=== PATIENT | male | born 1955 | race Caucasian/White ===

== ENCOUNTER 2016-12-12 10:45 | Day surgery (SDC) | payer BC, OTHER ==
[2016-12-12] MEDS ORDERED: DIPHENHYDRAMINE HCL 50 MG/ML VIAL ONE (11:08)
[2016-12-12] MEDS ORDERED: PROMETHAZINE HCL INJ 25 MG/1 ML VIAL ONE (11:08)
[2016-12-12] MEDS ORDERED: ONDANSETRON HCL INJ/PF 4 MG/2 ML SDV ONE (11:08)
[2016-12-12] MEDS ORDERED: NALOXONE HCL INJ/PF 0.4 MG/1 ML SDV ONE (11:08)
[2016-12-12] MEDS ORDERED: FLUMAZENIL INJ 0.5 MG/5 ML VIAL IV ONE (11:09)
[2016-12-12] MEDS ORDERED: EPINEPHRINE INJ 1 MG/10 ML DISP.SYRIN ONE (11:09)
[2016-12-12] MEDS ORDERED: MIDAZOLAM 2 MG/2 ML INJ ONE (11:09)
[2016-12-12] MEDS ORDERED: GLUCAGON,HUMAN RECOMB 1 MG INJ ONE (11:09)
[2016-12-12] MEDS: FENTANYL CITRATE INJ/PF 100 MCG/2 ML AMPUL ONE ×2 (11:36→11:38)
--- NOTE | 2016-12-12 11:43 | Operative Report ---
Operative Report DATE OF SURGERY: 12/12/16 Operative Report: The risks benefits and alternatives of the procedure explained to the patient in detail and informed consent is obtained that GIF Olympus video scope was inserted into the patient's mouth and hypopharynx the esophagus is identified intubated and insufflated the scope was then advanced through the esophagus stomach and duodenum retroflexion maneuver is done the esophagus stomach and first and second portions of the duodenum examined PREOPERATIVE DIAGNOSIS: Dysphagia POSTOPERATIVE DIAGNOSIS: Esophageal rings and furrows suggestive of eosinophilic esophagitis. Mild Schatzki's ring. Gastritis status post biopsy rule out Helicobacter pylori. duodenitis OPERATION: EGD with biopsy SURGEON: CHAVEZ TIERNEY ANESTHESIA: Moderate Sedation - 2 mg of Versed, 75 g of fentanyl. Conscious sedation monitoring time 15 minutes. TISSUE REMOVED OR ALTERED: Gastric specimen obtained rule out Helicobacter pylori COMPLICATIONS: None. ESTIMATED BLOOD LOSS: none. INTRAOPERATIVE FINDINGS: Possible eosinophilic esophagitis we'll await biopsies. Rule out Helicobacter pylori. As described above PROCEDURE: Patient tolerated procedure well. No immediate postprocedure complications are noted. Patient is discharged in good condition. Discharge date 12/12/2016. Discharge diet: Regular. Discharge activity: Regular. We'll await on biopsies. 2-3 week follow-up to discuss findings. Patient is instructed to call the office or proceed to the emergency room should there be any further problems or questions.
[2016-12-12 12:51] VITALS: BP 125/67
== END 2016-12-12 12:50 | disposition home or self-care (01) ==
LOC: END 10:45
PROVIDERS: ATTEND Internal Medicine Gastroenterology
PROC: 0DB58ZX Excision of Esophagus, Via Natural or Artificial Opening Endoscopic, Diagnostic (ICD-10-PCS; 2016-12-12)
PROC: 0DB68ZX Excision of Stomach, Via Natural or Artificial Opening Endoscopic, Diagnostic (ICD-10-PCS; principal; 2016-12-12 11:30)
DX: K29.50 Unspecified chronic gastritis without bleeding (principal); K21.9 Gastro-esophageal reflux disease without esophagitis; I25.10 Atherosclerotic heart disease of native coronary artery without angina pectoris; E78.5 Hyperlipidemia, unspecified; R97.20 Elevated prostate specific antigen [PSA]; Z79.899 Other long term (current) drug therapy; Z79.82 Long term (current) use of aspirin; Z88.8 Allergy status to other drugs, medicaments and biological substances; Z86.010 Personal history of colon polyps
CPT/HCPCS: 43239; 88342 ×2; 88305 ×2; J2250; J3010; J0171; J1200; J1610; J2310; J2405; J2550; J3490

== ENCOUNTER 2016-12-31 20:23 | Observation (INO) | payer BC ==
--- NOTE | 2016-12-31 21:11 | ER Document Report ---
ED Neuro Symptoms/Deficit - General Chief Complaint: Numbness Stated Complaint: LEFT SIDE NUMBNESS Time seen by provider: 21:09 Mode of Arrival: Medic Information source: Patient Notes: This is a 61-year-old man with a significant history of coronary artery disease who is brought in by EMS with right facial droop and right upper extremity weakness 40 minutes prior to arrival. The patient states that both the facial droop and numbness are improving and that the right upper extremity weakness is improving. Medications: Aspirin Fluoxetine Loratadine Phenylephrine Atorvastatin No known drug allergies Payment Manager: Dr. Rafiq Rae ([facility]: [phone]). The patient does have an internal director of cardiac rehabilitation which goes to Dr. Rae's office. Primary care physician: The patient recently moved to the [facility] and is being followed by Dr. Em TRAVEL OUTSIDE OF THE [place] IN LAST 30 DAYS: No - HPI Patient complains to provider of: Facial Droop Onset: Just prior to arrival Awoke with symptoms: No Symptoms are: No: Constant, Intermittent episodes, Worse/persistent, Noted on awakening Duration: denies: Better, Continues in ED, Gone now, More than 3 hrs Quality of pain: No pain Severity: None Pain Level: Denies Context: None Was STROKE ALERT Called: No Baseline Cognitive: Alert, oriented X 3 Baseline Gait: Walks w/o assistance Pre-existing weakness: No: Face, General, Hand, Lower extremity, Upper extremity Alert To: Name/Voice Patient Orientation: Person, Place, Time Character of altered mental status: No: Agitated, Confused, Combative, Decreased responsiveness, Disoriented, Seizure activity, Trouble concentrating, Unchanged from baseline, Unresponsive New weakness: denies: LUE, LLE, RUE, RLE, L facial, R facial, General (diffuse) Altered sensation: denies: LUE, LLE, RUE, RLE, L facial, R facial, General ( diffuse) Decreased ability to stand/walk: denies: Weak, Difficult, Off balance, Cannot walk, Cannot stand Associated symptoms: None Similar symptoms previously: No Recently seen / treated by doctor: No - Related Data Allergies/Adverse Reactions: atenolol Allergy (Unverified 12/11/16 11:06) gabapentin Allergy (Unverified 12/11/16 11:06) niacin Allergy (Unverified 12/11/16 11:06) Past Medical History - General Information source: Patient - Social History Smoking Status: Never Smoker Cigarette use (# per day): No Chew tobacco use (# tins/day): No Frequency of alcohol use: None Drug Abuse: None Lives with: Family Family History: Reviewed & Not Pertinent Patient has suicidal ideation: No Patient has homicidal ideation: No - Past Medical History Cardiac Medical History: Reports: Hx Coronary Artery Disease - BYPASS SURGERY X2 Denies: Hx Heart Attack, Hx Hypertension Pulmonary Medical History: Reports: Hx Pneumonia Denies: Hx Asthma, Hx Bronchitis, Hx COPD Neurological Medical History: Denies: Hx Cerebrovascular Accident, Hx Seizures Renal/ Medical History: Denies: Hx Peritoneal Dialysis Musculoskeltal Medical History: Reports Hx Arthritis - MILD SHOULDER - Immunizations Hx Diphtheria, Pertussis, Tetanus Vaccination: Yes Review of Systems - Review of Systems Constitutional: No symptoms reported EENT: No symptoms reported Cardiovascular: No symptoms reported Respiratory: No symptoms reported Gastrointestinal: No symptoms reported Genitourinary: No symptoms reported Male Genitourinary: No symptoms reported Musculoskeletal: No symptoms reported Skin: No symptoms reported Hematologic/Lymphatic: No symptoms reported Neurological/Psychological: See HPI Physical Exam - Vital signs Vitals: Temp Pulse Resp BP Pulse Ox 97.5 F 60 18 194/72 H 100 12/31/16 20:26 12/31/16 20:26 12/31/16 20:26 12/31/16 20:26 12/31/16 20:26 Notes: Physical exam: GENERAL: 61-year-old man, alert and oriented 3, no acute distress HEAD: Atraumatic, normocephalic. EYES: Pupils equal round and reactive to light, extraocular movements intact, sclera anicteric, conjunctiva are normal. ENT: TMs normal, nares patent, oropharynx clear without exudates. Moist mucous membranes. NECK: Normal range of motion, supple without lymphadenopathy or JVD. LUNGS: Breath sounds clear to auscultation bilaterally and equal. No wheezes rales or rhonchi. HEART: Regular rate and rhythm without murmurs, rubs or gallops. ABDOMEN: Soft, normoactive bowel sounds. No tenderness to palpation. No guarding, no rebound. No masses appreciated. EXTREMITIES: Normal range of motion, no pitting or edema. No clubbing or cyanosis. NEUROLOGICAL: Cranial nerves II through XII grossly intact. Motor 5 over 5, sensory grossly intact, cerebellar (finger to nose) good. Normal speech. Patient is able to answer both the month and his age correctly, he can close his eyes and open them up and make an fast and open them up on command, patient has normal horizontal gaze, patient's visual li are intact, there is no facial palsy, there is no motor on drift, there is motor no motor or leg drift, there is no evidence of ataxia, sensation is somewhat altered on the right side of the face, best language demonstrates no aphasia, his speech is clear, there is no extinction or inattention. NIH score is 1. PSYCH: Normal mood, normal affect. SKIN: Warm, Dry, normal turgor, no rashes or lesions noted. Course - Re-evaluation Re-evalutation: 12/31/16 21:17 The patient is not a candidate for thrombolytics based upon rapidly improving symptoms and an NIH score of 1. I have discussed this with him and he understands. - Vital Signs Vital signs: Temp Pulse Resp BP Pulse Ox 97.5 F 60 12 129/87 H 97 12/31/16 20:26 12/31/16 20:26 12/31/16 22:01 12/31/16 22:01 12/31/16 22:01 - Laboratory Result Diagrams: 12/31/16 20:45 12/31/16 20:45 Laboratory results interpreted by me: 12/31/16 12/31/16 12/31/16 20:41 20:45 20:45 Plt Count 143 L Sodium 145.4 H Glucose 117 H POC Glucose 129 H Creatine Kinase 431 H CK-MB (CK-2) 12/31/16 20:45 Plt Count Sodium Glucose POC Glucose Creatine Kinase CK-MB (CK-2) 15.10 H - Diagnostic Test Radiology reviewed: Image reviewed, Reports reviewed - CT of the head shows an old craniotomy (patient had surgery as a ). Chest x-ray is clear (there is a presence of a heart monitor in the left lower chest). - EKG Interpretation by Me Rate: Normal Rhythm: NSR - EKG shows sinus rhythm at a rate of 60, no acute ST-T wave changes Critical Care Note - Critical Care Note Total time excluding time spent on procedures (mins): 60 Discharge - Discharge Clinical Impression: acute stroke Condition: Stable Disposition: ADMITTED OBSERVATION Admitting Provider: Hospitalist - Dr. Mitchell Unit Admitted: [facility]
[2016-12-31 21:17] LABS: ABSOLUTE EOSINOPHILS # (AUTO) 0.2 10^3/uL (0.0-0.6); ABSOLUTE LYMPHOCYTES (AUTO) 1.6 10^3/uL (0.5-4.7); ABSOLUTE MONOCYTES (AUTO) 0.5 10^3/uL (0.1-1.4); ABSOLUTE NEUT (AUTO) 6.2 10^3/uL (1.7-8.2); BASOPHILS % (AUTO) 0.3 % (0-2); HEMATOCRIT 42.4 % (37.9-51.0); HEMOGLOBIN 14.8 g/dL (13.5-17.0); LYMPHOCYTES % (AUTO) 19.3 % (13-45); MEAN CORPUSCULAR HEMOGLOBIN 31.1 pg (27.0-33.4); MEAN CORPUSCULAR VOLUME 89 fl (80-97); MONOCYTES % (AUTO) 5.3 % (3-13); RED BLOOD COUNT 4.78 10^6/uL (4.35-5.55); RED CELL DISTRIBUTION WIDTH 13.5 % (11.5-14.0); SEGMENTED NEUTROPHILS % (AUTO) 73.1 % (42-78); WHITE BLOOD COUNT 8.5 10^3/uL (4.0-10.5)
[2016-12-31 21:26] LABS: ALANINE AMINOTRANSFERASE 38 U/L (21-72); ALBUMIN 4.5 g/dL (3.5-5.0); ALKALINE PHOSPHATASE 87 U/L (38-126); ANION GAP 13 (5-19); ASPARTATE AMINO TRANSFERASE 39 U/L (17-59); BILIRUBIN,DIRECT 0.4 mg/dL (0.0-0.4); BLOOD UREA NITROGEN 15 mg/dL (7-20); CALCIUM 9.5 mg/dL (8.4-10.2); CARBON DIOXIDE 27 mmol/L (22-30); CHLORIDE 105 mmol/L (98-107); CREATINE KINASE 431 U/L (55-170); CREATININE RESULT 0.85 mg/dL (0.52-1.25); GLUCOSE 117 mg/dL (75-110); POTASSIUM 4.4 mmol/L (3.6-5.0); SODIUM 145.4 mmol/L (137-145); TOTAL PROTEIN 7.7 g/dL (6.3-8.2)
[2016-12-31 23:37] LABS: ADD ON TESTING BLD IN LAB ACKNOWLEDGE
[2017-01-01 02:34] LABS: APPEARANCE,URINE CLEAR; BILIRUBIN,URINE NEGATIVE (NEGATIVE); GLUCOSE, URINE NEGATIVE (NEGATIVE); KETONES,URINE NEGATIVE (NEGATIVE); LEUKOCYTE ESTERASE,URINE NEGATIVE (NEGATIVE); NITRITE,URINE NEGATIVE (NEGATIVE); PROTEIN,URINE NEGATIVE (NEGATIVE); UROBILINOGEN,URINE NEGATIVE mg/dL (<2.0)
[2017-01-01 02:45] LABS: URINE BARBITURATES SCREEN NEGATIVE; URINE METHADONE SCREEN NEGATIVE; URINE OPIATES LOW NEGATIVE; URINE PHENCYCLIDINE SCREEN NEGATIVE
[2017-01-01] MEDS ORDERED: 1/2 NORMAL SALINE 1,000 ML IV PRN (03:16)
[2017-01-01] MEDS ORDERED: ACETAMINOPHEN 325 MG TABLET PO PRN (03:16)
[2017-01-01] MEDS ORDERED: ASPIRIN 325 MG TABLET, ENT COATED PO SCH (03:30)
[2017-01-01 03:34] LABS: ADD ON TESTING BLD IN LAB ACKNOWLEDGE
[2017-01-01 03:47] LABS: CREATINE KINASE 441 U/L (55-170)
--- NOTE | 2017-01-01 03:54 | PDOC H&P ---
History of Present Illness Admission Date/PCP: 01/01/17 0300 PCP Manav Abad [place], [place] Patient complains of: rt sided numbness History of Present Illness: BOUCHRA CHAMBERS is a 61 year old male with underlying known coronary artery disease, having undergone coronary arterial bypass graft on 2 separate occasions, mild arthritis, and anxiety, but with no underlying prior neurologic issues, including migraine headache, stroke, TIA, or mini stroke, who presents to the emergency room for evaluation of above complaints. Patient has been discussed with emergency room physician who evaluated the patient. Describes the onset at home of right facial droop, right upper extremity weakness, and numbness and tingling of his right face approximately 40 minutes prior to arrival. Symptoms resolved en route to the emergency room and have almost completely cleared. Still having some mild right facial numbness and tingling, along with similar involvement of his right lower extremity. No prior such issues. No history of migraine headache. did have a mild headache associated with the above symptoms, but this has resolved. No associated chest or abdominal pain, nausea vomiting, fever or chills. NIH score of 1 in the emergency room.. Laboratory results are listed in [facility] [employer] and are reviewed. No old labs available for comparison. X-ray summary results are listed below, with full report(s) reviewed. He is status post craniotomy as a , for uncertain reason.. EKG reviewed. Social history/personal habits: . Retired. 5 children. No use of alcohol tobacco or illicit drugs. Allergies/adverse reactions are listed in [employer] and are reviewed. Home medications Home medications initially autopopulated into [employer] may not accurately reflect patient's true medications, dosages, and/or frequencies. flight readiness technician to reconcile medications. Unfortunately, patient uncertain of all his medications/dosages/frequencies. REVIEW OF SYSTEMS: Constitutional: No fever or chills. Eyes: Wears glasses. ENT: No swallowing problems or complaints. No hearing problems or complaints. Pulmonary: No current complaints. Cardiovascular: No current complaints, including chest pain. Gastrointestinal: No current complaints, including nausea or vomiting. Skin: No current complaints, including rashes. Hematologic: No unusual easy bruising or bleeding. Neurologic: See history and present illness. Musculoskeletal: Mild Joint pain from arthritis. Psychiatric: Anxiety Endocrine: No current complaints, including polyuria. Genitourinary: No current complaints, including dysuria. PHYSICAL EXAMINATION: 95.3 kg. Height is not recorded on the chart.Pulse 51. Blood pressure 145/68. Respirations are 13 and unlabored. 98% saturation on room air. Temperature 97.5. Well-nourished well-developed perhaps slightly overweight bearded male appearing perhaps a bit younger than his stated age. Pleasant awake alert and cooperative. No obvious distress other than perhaps mildly anxious. Skin is warm and dry. No grossly obvious evidence of rash in areas of skin examined. No subcutaneous nodules palpated. ENT: Hearing grossly normal to normal conversation. Tongue midline on protrusion pink and slightly tacky. Eyes: No scleral icterus. Pupils equal and reactive to light at 4 mm. [place] conjunctivae. Neck is supple and nontender to gentle active range of motion and palpation. Midline trachea. No palpable thyroid nodule mass enlargement or tenderness. Lymphatic: No palpable cervical or clavicular nodes. Neck and lymphatic exams limited by patient body habitus. Psychiatric: Reasonable insight into acute and chronic medical issues. Oriented to time location and why here. Lungs: Auscultation reveals clear and equal breath sounds bilaterally. No use of accessory respiratory muscles. Cardiovascular: Heart regular rate and rhythm, without gallop murmur or rub. No carotid or abdominal aortic bruits. No ankle or pedal edema. Faintly palpable dorsalis pedis pulses. Abdomen: soft, , slightly distended nontender with positive bowel sounds. Unable to adequately evaluate abdomen for masses or organomegaly due to distention. Extremities: Feet are warm and dry. No calf tenderness to compression. No grossly obvious visual evidence of calf swelling. Gentle manipulation of lower extremities fails to reveal any obvious evidence of injury or instability to knees hips or ankles. Neurologic: Cranial Nerves II through XII are grossly intact. Light touch intact at left side of face, both upper and left lower extremities. Slight decrease in light touch sensation, right side of face and distal right lower extremity. Motor function of major muscle groups upper and lower extremities 5 over 5 and symmetric. Patellar reflexes absent. Absent Babinski. No nystagmus. Past Medical History Cardiac Medical History: Reports: Coronary Artery Disease - BYPASS SURGERY X2 Denies: Congestive Heart Failure, DVT, Myocardial Infarction, Hyperlipidema, Hypertension, Pulmonary Embolism Pulmonary Medical History: Reports: Pneumonia Denies: Asthma, Bronchitis, Chronic Obstructive Pulmonary Disease (COPD) Neurological Medical History: Denies: Hemorrhagic CVA, Ischemic CVA, Seizures Endocrine Medical History: Denies: Diabetes Mellitus Type 1, Diabetes Mellitus Type 2, Hyperthyroidism, Hypothyroidism Renal/ Medical History: Reports: None GI Medical History: Denies: Cirrhosis, Gastroesophageal Reflux Disease, Hepatitis Musculoskeltal Medical History: Reports: Arthritis - MILD SHOULDER Skin Medical History: Reports: None Psychiatric Medical History: Reports: General Anxiety Disorder Denies: Alcohol Dependency, Depression, Substance Abuse, Tobacco Dependency Hematology: Denies: Anemia Infectious Medical History: Denies: Hepatitis B, Hepatitis C Past Surgical History Past Surgical History: Reports: Coronary Artery Bypass Graft - 2, Orthopedic Surgery - Hip surgery, Other - Craniotomy as a Social History Information Source: Patient, Emergency Med Personnel, [facility] Records Lives with: Spouse/Significant other Smoking Status: Never Smoker Frequency of Alcohol Use: None Drugs: None - Advance Directive Resuscitation Status: Full Code Surrogate healthcare decision maker:: Family History Family History: Reviewed & Not Pertinent Parental Family History Reviewed: Yes - father when his "muscles gave way. " Mother is 92, has heart disease. Children Family History Reviewed: Yes - Son with Schatzki's ring Sibling(s) Family History Reviewed.: Yes - Brother with hypertension Medication/Allergy Home Medications: Aspirin [Ecotrin 325 mg EC Tablet] 325 mg PO DAILY tabec 01/01/17 Atorvastatin Calcium [Lipitor 40 mg Tablet] 40 mg PO QHS 01/01/17 Fluoxetine HCl [Prozac] 40 mg PO DAILY 01/01/17 Loratadine [Claritin 10 mg Tablet] 10 mg PO DAILY 01/01/17 Allergies/Adverse Reactions: atenolol Allergy (Unverified 12/11/16 11:06) gabapentin Allergy (Unverified 12/11/16 11:06) niacin Allergy (Unverified 12/11/16 11:06) Physical Exam Vital Signs: Temp Pulse Resp BP Pulse Ox 97.5 F 56 L 13 145/68 H 98 12/31/16 20:26 01/01/17 00:00 01/01/17 02:01 01/01/17 02:01 01/01/17 02:01 Results Laboratory Results: 01/01/17 02:10 Urine Color YELLOW Urine Appearance CLEAR Urine pH 7.0 Ur Specific [place] 1.010 Urine Protein NEGATIVE Urine Glucose (UA) NEGATIVE Urine Ketones NEGATIVE Urine Blood NEGATIVE Urine Nitrite NEGATIVE Ur Leukocyte Esterase NEGATIVE Urine WBC (Auto) 0 01/01/17 00:50 Troponin I < 0.012 Impressions: Chest X-Ray 12/31/16 00:00 IMPRESSION: NO ACUTE RADIOGRAPHIC FINDING IN THE CHEST. Head CT 12/31/16 20:29 IMPRESSION: Postsurgical changes. No acute intracranial event. Assessment & Plan - Diagnosis (1) Acute focal neurological deficit Is this a current diagnosis for this admission?: YesPlan: Patient will be placed in observation bed under CVA/TIA protocol. Multiple imaging procedures, intracranial, vascular, and cardiac. lipid panel. Permissive hypertension. Patient is a full code. I have strongly urged patient not to get out of bed without calling nursing staff, to avoid a fall with injury.] Knee high SCDs for DVT prophylaxis, along with subcutaneous Lovenox . Impression and plans were discussed with patient, who concurs. Time spent in evaluation and management of patient: 63 minutes (2) Elevated CPK Is this a current diagnosis for this admission?: YesPlan: Uncertain significance. Repeat level. (3) Facial droop Is this a current diagnosis for this admission?: Yes (4) Facial paresthesia Is this a current diagnosis for this admission?: Yes (5) Paresthesia of right leg Is this a current diagnosis for this admission?: Yes (6) Right arm weakness Is this a current diagnosis for this admission?: Yes (7) Thrombocytopenia Is this a current diagnosis for this admission?: YesPlan: Uncertain significance. No old labs available for comparison. Repeat CBC. (8) CAD (coronary artery disease) Qualifiers: Coronary Disease-Associated Artery/Lesion type: [place] artery [place] vs. transplanted heart: [place] heart Associated angina: without angina Qualified Code(s): I25.10 - Atherosclerotic heart disease of [place] coronary artery without angina pectoris Is this a current diagnosis for this admission?: YesPlan: No evidence of acute coronary syndrome.Resume home medications as appropriate once these have been determined and reviewed.
[2017-01-01 07:22] LABS: HEMATOCRIT 40.5 % (37.9-51.0); HEMOGLOBIN 14.4 g/dL (13.5-17.0); HGB HCT DIFFERENCE 2.7; MEAN CORPUSCULAR HEMOGLOBIN 31.3 pg (27.0-33.4); MEAN CORPUSCULAR HGB CONC 35.6 g/dL (32.0-36.0); MEAN CORPUSCULAR VOLUME 88 fl (80-97); RED CELL DISTRIBUTION WIDTH 13.5 % (11.5-14.0); WHITE BLOOD COUNT 5.8 10^3/uL (4.0-10.5)
[2017-01-01 07:37] LABS: ANION GAP 11 (5-19); BLOOD UREA NITROGEN 12 mg/dL (7-20); CALCIUM 8.9 mg/dL (8.4-10.2); CARBON DIOXIDE 28 mmol/L (22-30); CHLORIDE 105 mmol/L (98-107); CREATININE RESULT 0.76 mg/dL (0.52-1.25); Direct HDL 30 mg/dL (>40); GLUCOSE 100 mg/dL (75-110); POTASSIUM 4.3 mmol/L (3.6-5.0); SODIUM 143.5 mmol/L (137-145); TRIGLYCERIDES 194 mg/dL (<150)
--- NOTE | 2017-01-01 07:40 | EKG REPORT ---
SEVERITY:- NORMAL ECG - SINUS RHYTHM : Confirmed by: Lakisha Sellers MD 01-Jan-2017 07:39:17
[2017-01-01 07:47] LABS: DIRECT LDL 60 mg/dL (<100)
[2017-01-01 07:54] LABS: VLDL CHOLESTEROL 38.8 mg/dL (10-31)
[2017-01-01] MEDS ORDERED: ENOXAPARIN SODIUM INJ 40 MG/0.4 ML DISP.SYRIN SUBCUT SCH (08:00)
[2017-01-01] MEDS ORDERED: DOCUSATE SODIUM 100 MG CAPSULE PO SCH (10:00)
--- NOTE | 2017-01-01 16:37 | PDOC DISCHARGE SUMMARY ---
General - Admit/Disc Date/PCP Admission Date/Primary Care Provider: 01/01/17 03:16 Dr. Jamie Em Discharge Date: 01/01/17 - Discharge Diagnosis (1) TIA (transient ischemic attack) Is this a current diagnosis for this admission?: Yes (2) Sinus bradycardia Is this a current diagnosis for this admission?: Yes (3) Thrombocytopenia Is this a current diagnosis for this admission?: Yes (4) CAD (coronary artery disease) Is this a current diagnosis for this admission?: Yes - Additional Information Resuscitation Status: Full Code Discharge Diet: Cardiac Discharge Activity: Slowly Increase Activity Home Medications: Aspirin [Ecotrin 325 mg EC Tablet] 325 mg PO DAILY tabec 01/01/17 Atorvastatin Calcium [Lipitor 40 mg Tablet] 40 mg PO QHS 01/01/17 Fluoxetine HCl [Prozac] 40 mg PO DAILY 01/01/17 Loratadine [Claritin 10 mg Tablet] 10 mg PO DAILY 01/01/17 History of Present Illness Patient complains of: Right-sided numbness History of Present Illness: BOUCHRA CHAMBERS is a 61 year old male with underlying known coronary artery disease, having undergone coronary arterial bypass graft on 2 separate occasions, mild arthritis, and anxiety, but with no underlying prior neurologic issues, including migraine headache, stroke, TIA, or mini stroke, who presents to the emergency room for evaluation of above complaints. Patient has been discussed with emergency room physician who evaluated the patient. Describes the onset at home of right facial droop, right upper extremity weakness, and numbness and tingling of his right face proximal he 40 minutes prior to arrival. Symptoms resolved in route to the emergency room and have almost completely cleared. Still having some mild right facial numbness and tingling, along with similar involvement of his right lower extremity. No prior such issues. No history of migraine headache. She did have a mild headache associated with the above symptoms, but this has resolved. No associated chest or abdominal pain, nausea vomiting, fever or chills. NIH score of 1 in the emergency room.. Hospital Course Hospital Course: Patient was admitted for evaluation of TIA. Head CT was negative. Aspirin regimen was increased from 81 mg daily to 325 mg daily. Patient was maintained on Lipitor 40 mg daily. EKG showed sinus rhythm. Telemetry monitoring showed sinus bradycardia but no evidence of dysrhythmia. MRI was not performed secondary to implantable teletypesetter monitor. Patient's symptoms completely resolved within hours of admission. Carotid Dopplers showed no significant stenosis. Echocardiogram was performed and results are pending. TSH was performed secondary to sinus bradycardia but results are pending. Patient will need a follow-up with Dr. Jamie Hidalgo primary care doctor. Patient's states she will make appointment for local family centered specialist based on insurance requirements. Physical Exam Vital Signs: Temp Pulse Resp BP Pulse Ox 98.0 F 60 16 147/73 H 99 01/01/17 12:04 01/01/17 12:04 01/01/17 12:04 01/01/17 12:04 01/01/17 12:04 Intake & Output 12/31/16 01/01/17 01/02/17 06:59 06:59 06:59 Intake Total 300 713 Balance 300 713 Weight 97.5 kg GENERAL: No acute distress HEENT: Conjunctiva clear, nonicteric, moist mucous membranes, no JVD, midline trachea RESPIRATORY: Clear to auscultation bilaterally, no wheezes, no rhonchi CARDIAC: Regular rate and rhythm, no murmurs/gallops/rubs ABDOMEN: Soft, nondistended, nontender, positive bowel sounds, no rebound, no guarding EXTREMETIES: No edema, cyanosis, clubbing NEUROLOGIC: Alert, oriented to person/place/time, CN's grossly intact, no focal deficits SKIN: No rash, wounds PSYCH: Normal mood, normal affect Results Laboratory Results: 01/01/17 06:33 01/01/17 06:33 01/01/17 01/01/17 06:33 06:33 WBC 5.8 RBC 4.60 Hgb 14.4 Hct 40.5 MCV 88 MCH 31.3 MCHC 35.6 RDW 13.5 Plt Count 124 L Sodium 143.5 Potassium 4.3 Chloride 105 Carbon Dioxide 28 Anion Gap 11 BUN 12 Creatinine 0.76 Est GFR ( Amer) > 60 Est GFR (Non-Af Amer) > 60 Glucose 100 Calcium 8.9 Triglycerides 194 H Cholesterol 135.10 LDL Cholesterol Direct 60 VLDL Cholesterol 38.8 H HDL Cholesterol 30 L Labs- Last Values WBC 5.8 10^3/uL (4.0-10.5) 01/01/17 06:33 RBC 4.60 10^6/uL (4.35-5.55) 01/01/17 06:33 Hgb 14.4 g/dL (13.5-17.0) 01/01/17 06:33 Hct 40.5 % (37.9-51.0) 01/01/17 06:33 MCV 88 fl (80-97) 01/01/17 06:33 MCH 31.3 pg (27.0-33.4) 01/01/17 06:33 MCHC 35.6 g/dL (32.0-36.0) 01/01/17 06:33 RDW 13.5 % (11.5-14.0) 01/01/17 06:33 Plt Count 124 10^3/uL (150-450) L 01/01/17 06:33 Seg Neutrophils % 73.1 % (42-78) 12/31/16 20:45 Lymphocytes % 19.3 % (13-45) 12/31/16 20:45 Monocytes % 5.3 % (3-13) 12/31/16 20:45 Eosinophils % 2.0 % (0-6) 12/31/16 20:45 Basophils % 0.3 % (0-2) 12/31/16 20:45 Absolute Neutrophils 6.2 10^3/uL (1.7-8.2) 12/31/16 20:45 Absolute Lymphocytes 1.6 10^3/uL (0.5-4.7) 12/31/16 20:45 Absolute Monocytes 0.5 10^3/uL (0.1-1.4) 12/31/16 20:45 Absolute Eosinophils 0.2 10^3/uL (0.0-0.6) 12/31/16 20:45 Absolute Basophils 0.0 10^3/uL (0.0-0.2) 12/31/16 20:45 Sodium 143.5 mmol/L (137-145) 01/01/17 06:33 Potassium 4.3 mmol/L (3.6-5.0) 01/01/17 06:33 Chloride 105 mmol/L (98-107) 01/01/17 06:33 Carbon Dioxide 28 mmol/L (22-30) 01/01/17 06:33 Anion Gap 11 (5-19) 01/01/17 06:33 BUN 12 mg/dL (7-20) 01/01/17 06:33 Creatinine 0.76 mg/dL (0.52-1.25) 01/01/17 06:33 Est GFR ( Amer) > 60 (>60) 01/01/17 06:33 Est GFR (Non-Af Amer) > 60 (>60) 01/01/17 06:33 Glucose 100 mg/dL (75-110) 01/01/17 06:33 POC Glucose 129 mg/dL (70-110) H 12/31/16 20:41 Calcium 8.9 mg/dL (8.4-10.2) 01/01/17 06:33 Magnesium 2.0 mg/dL (1.6-2.3) 12/31/16 20:45 Total Bilirubin 1.0 mg/dL (0.2-1.3) 12/31/16 20:45 Direct Bilirubin 0.4 mg/dL (0.0-0.4) 12/31/16 20:45 Indirect Bilirubin Not Reportable 12/31/16 20:45 Neonat Total Bilirubin Not Reportable 12/31/16 20:45 AST 39 U/L (17-59) 12/31/16 20:45 ALT 38 U/L (21-72) 12/31/16 20:45 Alkaline Phosphatase 87 U/L (38-126) 12/31/16 20:45 Creatine Kinase 441 U/L (55-170) H 12/31/16 20:45 CK-MB (CK-2) 15.10 ng/mL (<4.55) H 12/31/16 20:45 Troponin I < 0.012 ng/mL 01/01/17 00:50 Total Protein 7.7 g/dL (6.3-8.2) 12/31/16 20:45 Albumin 4.5 g/dL (3.5-5.0) 12/31/16 20:45 Triglycerides 194 mg/dL (<150) H 01/01/17 06:33 Cholesterol 135.10 mg/dL (0-200) 01/01/17 06:33 LDL Cholesterol Direct 60 mg/dL (<100) 01/01/17 06:33 VLDL Cholesterol 38.8 mg/dL (10-31) H 01/01/17 06:33 HDL Cholesterol 30 mg/dL (>40) L 01/01/17 06:33 Urine Color YELLOW 01/01/17 02:10 Urine Appearance CLEAR 01/01/17 02:10 Urine pH 7.0 (5.0-9.0) 01/01/17 02:10 Ur Specific [place] 1.010 01/01/17 02:10 Urine Protein NEGATIVE mg/dL (NEGATIVE) 01/01/17 02:10 Urine Glucose (UA) NEGATIVE mg/dL (NEGATIVE) 01/01/17 02:10 Urine Ketones NEGATIVE mg/dL (NEGATIVE) 01/01/17 02:10 Urine Blood NEGATIVE (NEGATIVE) 01/01/17 02:10 Urine Nitrite NEGATIVE (NEGATIVE) 01/01/17 02:10 Urine Bilirubin NEGATIVE (NEGATIVE) 01/01/17 02:10 Urine Urobilinogen NEGATIVE mg/dL (<2.0) 01/01/17 02:10 Ur Leukocyte Esterase NEGATIVE (NEGATIVE) 01/01/17 02:10 Urine WBC (Auto) 0 /HPF 01/01/17 02:10 Urine Mucus (Auto) RARE /LPF 01/01/17 02:10 Urine Ascorbic Acid NEGATIVE (NEGATIVE) 01/01/17 02:10 Urine Opiates Screen NEGATIVE 01/01/17 02:10 Urine Methadone Screen NEGATIVE 01/01/17 02:10 Ur Barbiturates Screen NEGATIVE 01/01/17 02:10 Ur Phencyclidine Scrn NEGATIVE 01/01/17 02:10 Ur Amphetamines Screen NEGATIVE 01/01/17 02:10 U Benzodiazepines Scrn NEGATIVE 01/01/17 02:10 Urine Cocaine Screen NEGATIVE 01/01/17 02:10 U Marijuana (THC) Screen NEGATIVE 01/01/17 02:10 EKG Comments: Sinus rhythm Impressions: Chest X-Ray 12/31/16 00:00 IMPRESSION: NO ACUTE RADIOGRAPHIC FINDING IN THE CHEST. Head CT 12/31/16 20:29 IMPRESSION: Postsurgical changes. No acute intracranial event. Carotid Doppler Study 01/01/17 03:21 IMPRESSION: NO HEMODYNAMICALLY SIGNIFICANT STENOSIS. Qualifiers PATEINT BEING DISCHARGED WITH ANY OF THE FOLLOWING DIAGNOSIS?: No Plan Time Spent: Less than 30 Minutes
[2017-01-01 17:07] VITALS: BP 194/72
--- NOTE | 2017-01-01 19:29 | XCELERA REPORT ---
[address] [address] Transthoracic Echocardiogram Report Name: BOUCHRA CHAMBERS Age: 61 yrs Gender: Male : 1955 Patient Status: Inpatient Patient Location: [id number] Study Date: 01/01/2017 09:10 AM Height: 70 in Weight: 210 lb BSA: 2.1 m2 Procedure: A complete two-dimensional transthoracic echocardiogram was performed (2D, M-mode, spectral and color flow Doppler). The study was technically difficult with many images being suboptimal in quality. Reason For Study: TIA VS CVA Ordering Physician: JANIE DE LEÓN Performed By: Joanie Alonso Interpretation Summary LV EF is 50% Left ventricular systolic function is mildly reduced. There is borderline concentric left ventricular hypertrophy. The left ventricle is grossly normal size. Doppler measurements suggest pseudonormalized left ventricular relaxation, which is associated with grade II/IV or mild to moderate diastolic dysfunction Wall motion cannot be accurately commented on, but no definite regional wall motion abnormalities noted. The right ventricle is mildly dilated. The right ventricular systolic function is normal. The left atrium is mildly dilated. The right atrium is mildly dilated. There is a mild amount of mitral regurgitation There is no mitral valve stenosis. No aortic regurgitation is present. There is no aortic valve stenosis There is a trace or physiologic amount of tricuspid regurgitation Tricuspid regurgitation jet envelope not well defined to measure RV systolic pressure accurately. The aortic root is not well visualized. The inferior vena cava was not visualized There is no pericardial effusion. MMode/2D Measurements \T\ Calculations RVDd: 3.1 cm LVIDd: 5.4 cm FS: 23.8 % Ao root diam: 3.5 cm IVSd: 0.86 cm LVIDs: 4.1 cm EDV(Teich): 140.4 ml LVPWd: 0.98 cmESV(Teich): 74.4 ml Ao root area: 9.5 cm2 EF(Teich): 47.1 % LA dimension: 4.2 cm LVOT diam: 2.0 cm LVOT area: 3.2 cm2 Doppler Measurements \T\ Calculations MV E max noel: MV P1/2t max noel: Ao V2 max: LV V1 max P.1 cm/sec 73.5 cm/sec 107.2 cm/sec 4.1 mmHg MV A max noel: MV P1/2t: 64.4 msec Ao max PG: LV V1 max: 82.4 cm/sec MVA(P1/2t): 3.4 cm2 4.6 mmHg 100.7 cm/sec MV E/A: 0.89 MV dec slope: ARIADNA(V,D): 3.0 cm2 334.6 cm/sec2 PA V2 max: 68.6 cm/sec PA max P.9 mmHg Left Ventricle The left ventricle is grossly normal size. There is borderline concentric left ventricular hypertrophy. Left ventricular systolic function is mildly reduced. LV EF is 50%. Doppler measurements suggest pseudonormalized left ventricular relaxation, which is associated with grade II/IV or mild to moderate diastolic dysfunction. Wall motion cannot be accurately commented on, but no definite regional wall motion abnormalities noted. Right Ventricle The right ventricle is mildly dilated. There is normal right ventricular wall thickness. The right ventricular systolic function is normal. Atria The right atrium is mildly dilated. The left atrium is mildly dilated. Interarterial septum not well visualized and not well dopplered. Cannot comment on ASD/PFO presence. Mitral Valve The mitral valve leaflets are sclerotic, but show no functional abnormalities. There is no mitral valve stenosis. There is a mild amount of mitral regurgitation. Aortic Valve The aortic valve is grossly normal. There is no aortic valve stenosis. No aortic regurgitation is present. Tricuspid Valve The tricuspid valve is not well visualized secondary to technical limitations. There is no tricuspid stenosis. There is a trace or physiologic amount of tricuspid regurgitation. Tricuspid regurgitation jet envelope not well defined to measure RV systolic pressure accurately. Pulmonic Valve The pulmonic valve is not well visualized. Great Vessels The aortic root is not well visualized. The inferior vena cava was not visualized. Effusions There is no pericardial effusion. : JANIE DE LEÓN > Erica Mckeon
== END 2017-01-01 17:40 | disposition home or self-care (01) ==
LOC: ER 20:23 → EH 23:21 → UNDOADMOB 23:21 → 3N 01-01 02:31 → EH 01-01 02:31 → 3N 01-01 03:16 → EH 01-01 03:16
PROVIDERS: ADMIT Family Medicine; ATTEND Family Medicine
DX: G45.9 Transient cerebral ischemic attack, unspecified (principal); R00.1 Bradycardia, unspecified; D69.6 Thrombocytopenia, unspecified; I25.10 Atherosclerotic heart disease of native coronary artery without angina pectoris; Z95.1 Presence of aortocoronary bypass graft; F41.9 Anxiety disorder, unspecified; M19.90 Unspecified osteoarthritis, unspecified site; M13.819 Other specified arthritis, unspecified shoulder; Z98.890 Other specified postprocedural states; Z82.49 Family history of ischemic heart disease and other diseases of the circulatory system; Z79.82 Long term (current) use of aspirin; Z79.899 Other long term (current) drug therapy
CPT/HCPCS: 93005; 99291; 36415 ×2; 82553; 82962; 82550 ×2; 83735; 84443; 85025; 85027; 80048; 80053; 81001; 84484 ×2; 80307; 80061; 93306; 93880; 71010; 70450; 93010; G0378; J1650

== ENCOUNTER → 2017-05-28 | Outpatient (CLI) | payer BC ==
[~2017-05-28] MED LIST: REGADENOSON INJ 0.4 MG/5 ML DISP.SYRIN IV ONE
--- NOTE | 2017-05-28 13:07 | RADIOLOGY REPORT (SQ) ---
EXAM DESCRIPTION: [facility] SPECT-CARDIOLITE COMPLETED DATE/TIME: 05/28/2017 12:40 pm REASON FOR STUDY: BRADYCARDIA, UNSPEC (R00.1), HTN (I10) R00.1 BRADYCARDIA, UNSPECIFIED I10 ESSENT IAL (PRIMARY) HYPERTENSION COMPARISON: Chest film 12/31/2016 Cardiac echo 01/01/2017 RADIONUCLIDE AND DOSE: RADIONUCLIDE REST: 14.95 mCi technetium 99m sestamibi. RADIONUCLIDE STRESS: 43.7 mCi technetium 99m sestamibi. STRESS AGENT: 0.4 mg Lexiscan. The route of agent administration: Intravenous TECHNIQUE: Following administration of the radionuclide, gated ECT images of the heart are obtained in three projections. Images obtained at rest and with stress. Left ventricular functional analysis performed. LIMITATIONS: None. FINDINGS: LEFT VENTRICULAR FUNCTION: EJECTION FRACTION: 56%. END-DIASTOLIC VOLUME: 120 mL. END-SYSTOLIC VOLUME: 53 mL. TID RATIO: 0.83. WALL MOTION: Normal thickening of the left ventricular myocardium. No focal areas of fixed thickness or thinning. PERFUSION IMAGES: Normal myocardial perfusion at stress and rest. No reversible defects worrisome fo r ischemic change. OTHER: No other significant finding. IMPRESSION: No Cardiolite defects on stress as compared to rest. Left ventricular ejection fraction 56%. Borderline dilatation of the left ventricle on the end systolic and end diastolic volume estim ates COMMENT: RISK ASSESSMENT: Low risk. LOW RISK FINDINGS: Normal or small perfusion defect rest or stress. INTERMEDIATE RISK FINDINGS: Mild/moderate resting LV dysfunction LVEF=35-49%. Stress-induced moderate perfusion defect without LV dilatation. HIGH RISK FINDINGS: Severe resting LV dysfunction LVEF<35%. Stress-induced large perfusion defect. Stress-induced moderate sized multiple perfusion defects. Large fixed perfusion defect with LV dilatation. Stress-induced moderate perfusion defect with LV dilatation. TECHNICAL DOCUMENTATION: JOB ID: [id number] [employer]- All Rights Reserved
== END ==
LOC: RAD 07:35
PROVIDERS: ATTEND Internal Medicine Cardiovascular Disease
DX: R00.1 Bradycardia, unspecified (principal); I10 Essential (primary) hypertension
CPT/HCPCS: 93017; 78452; A9500; J2785; Q9969

== ENCOUNTER → 2017-06-05 | Outpatient (CLI) | payer BC ==
--- NOTE | 2017-06-05 16:26 | RADIOLOGY REPORT (SQ) ---
EXAM DESCRIPTION: CT HEAD WITHOUT COMPLETED DATE/TIME: 06/05/2017 3:57 pm REASON FOR STUDY: HEADACHE R51 HEADACHE COMPARISON: CT brain 12/31/2016 TECHNIQUE: Axial images acquired through the brain without intravenous contrast. Images reviewed wi th bone, brain and subdural windows. Images stored on PACS. All CT scanners at this facility use dose modulation, iterative reconstruction, and/or weight based d osing when appropriate to reduce radiation dose to as low as reasonably achievable (ALARA). [facility]: Dose Right [facility]: CareDose [facility]: Dose Right [facility]: Teradose 4D [facility]: Smart [employer] RADIATION DOSE: Up-to-date CT equipment and radiation dose reduction techniques were employed. CTDIv ol: 49.0 mGy. DLP: 881 mGy-cm. mGy. LIMITATIONS: None. FINDINGS: VENTRICLES: Normal size and contour. CEREBRUM: No masses. No acute hemorrhage. No midline shift. No evidence for acute infarction. Ther e is a chronic appearing left frontal white matter infarct on axial image 22, which is new compared t o CT brain 12/31/2016. CEREBELLUM: No masses. No hemorrhage. No alteration of density. No evidence for acute infarction. EXTRAAXIAL SPACES: No fluid collections. No masses. There are surgical clips in the left frontal mccormick barachnoid space ORBITS AND GLOBE: No intra- or extraconal masses. Old left cataract surgery. CALVARIUM: Old left and right frontal craniotomies. PARANASAL SINUSES: No fluid or mucosal thickening. SOFT TISSUES: No mass or hematoma. OTHER: No other significant finding. IMPRESSION: Since the prior CT 12/31/2016, patient has developed a small lacunar infarct in the left frontal deep periventricular white matter, which appears chronic on today's exam. Old bifrontal craniotomies with surgical clips in the left frontal subarachnoid or subdural space. No acute intracranial hemorrhage, no CT evidence of large territory acute ischemic change. EVIDENCE OF ACUTE STROKE: NO. COMMENT: Quality ID # [id number]: Final reports with documentation of one or more dose reduction techniques (e.g., Automated exposure control, adjustment of the mA and/or kV according to patient size, use of iterative reconstruction technique) TECHNICAL DOCUMENTATION: JOB ID: [id number]- All Rights Reserved
== END ==
LOC: RAD 15:46
PROVIDERS: ATTEND Family Medicine
DX: R51 Headache (principal)
CPT/HCPCS: 70450

== ENCOUNTER 2017-06-27 17:01 | Emergency (ER) | payer BC ==
--- NOTE | 2017-06-27 17:15 | ER Document Report ---
ED Medical Screen (RME) - General Chief Complaint: S/S of Possible Stroke Stated Complaint: DIZZINESS Time Seen by Provider: 06/27/17 17:13 Mode of Arrival: Wheelchair Information source: Patient, Relative TRAVEL OUTSIDE OF THE [place] IN LAST 30 DAYS: No - HPI Patient complains to provider of: Right facial numbness, generalized weakness with fatigue Notes: 06/27/17 17:14 Patient is a 62-year-old male who presents to the emergency room today complaining of odd sensation across the top of his head with the sensation of numbness in his right cheek, feeling sluggish and tired, stating that he just wants to sleep, he expresses concern for TIA versus stroke, patient has a history of a previous stroke, symptoms started at 12:00 noon today - Related Data Allergies/Adverse Reactions: atenolol Allergy (Verified 06/27/17 17:03) gabapentin Allergy (Verified 06/27/17 17:03) niacin Allergy (Verified 06/27/17 17:03) Past Medical History - Past Medical History Cardiac Medical History: Reports: Hx Coronary Artery Disease - BYPASS SURGERY X2 Denies: Hx Congestive Heart Failure, Hx DVT, Hx Heart Attack, Hx Hypercholesterolemia, Hx Hypertension, Hx Pulmonary Embolism Pulmonary Medical History: Reports: Hx Pneumonia Denies: Hx Asthma, Hx Bronchitis, Hx COPD Neurological Medical History: Denies: Hx Cerebrovascular Accident, Hx Seizures Endocrine Medical History: Denies: Hx Diabetes Mellitus Type 1, Hx Diabetes Mellitus Type 2, Hx Hyperthyroidism, Hx Hypothyroidism Renal/ Medical History: Denies: Hx Peritoneal Dialysis GI Medical History: Denies: Hx Cirrhosis, Hx Gastroesophageal Reflux Disease, Hx Hepatitis Musculoskeltal Medical History: Reports Hx Arthritis - MILD SHOULDER Psychiatric Medical History: Denies: Hx Depression Infectious Medical History: Denies: Hx Hepatitis Past Surgical History: Reports: Hx Coronary Artery Bypass Graft - 2, Hx Orthopedic Surgery - Hip surgery, Other - Craniotomy as a - Immunizations Hx Diphtheria, Pertussis, Tetanus Vaccination: Yes Physical Exam - Vital signs Vitals: Temp Pulse Resp BP Pulse Ox 65 F L 65 17 152/79 H 99 06/27/17 17:03 06/27/17 17:03 06/27/17 17:03 06/27/17 17:03 06/27/17 17:03 Course - Vital Signs Vital signs: Temp Pulse Resp BP Pulse Ox 65 F L 65 17 152/79 H 99 06/27/17 17:03 06/27/17 17:03 06/27/17 17:03 06/27/17 17:03 06/27/17 17:03
--- NOTE | 2017-06-27 17:44 | RADIOLOGY REPORT (SQ) ---
EXAM DESCRIPTION: CT HEAD WITHOUT COMPLETED DATE/TIME: 06/27/2017 5:29 pm REASON FOR STUDY: right facial numbness COMPARISON: 06/05/2017 and 12/31/2016 TECHNIQUE: Axial images acquired through the brain without intravenous contrast. Images reviewed wi th bone, brain and subdural windows. Images stored on PACS. All CT scanners at this facility use dose modulation, iterative reconstruction, and/or weight based d osing when appropriate to reduce radiation dose to as low as reasonably achievable (ALARA). [facility]: Dose Right [facility]: CareDose [facility]: Dose Right [facility]: Teradose 4D [facility]: Smart [employer] RADIATION DOSE: Up-to-date CT equipment and radiation dose reduction techniques were employed. CTDIv ol: 64.6 mGy. DLP: 1163 mGy-cm. mGy. LIMITATIONS: None. FINDINGS: VENTRICLES: Normal size and contour. CEREBRUM: No masses. No hemorrhage. No midline shift. No evidence for acute infarction. Stable myra earance of a left frontal lacunar infarct. CEREBELLUM: No masses. No hemorrhage. No alteration of density. No evidence for acute infarction. EXTRAAXIAL SPACES: No fluid collections. No masses. ORBITS AND GLOBE: No intra- or extraconal masses. Normal contour of globe without masses. Status po st IOL placement OS. CALVARIUM: Stable appearance of bifrontal craniotomies. PARANASAL SINUSES: No fluid or mucosal thickening. SOFT TISSUES: No mass or hematoma. OTHER: No other significant finding. IMPRESSION: Stable CT appearance of the brain. No evidence of acute intracranial hemorrhage, acute ischemic event, or mass. EVIDENCE OF ACUTE STROKE: NO. COMMENT: Quality ID # [id number]: Final reports with documentation of one or more dose reduction techniques (e.g., Automated exposure control, adjustment of the mA and/or kV according to patient size, use of iterative reconstruction technique) TECHNICAL DOCUMENTATION: JOB ID: [id number] [employer]- All Rights Reserved
[2017-06-27 18:14] LABS: ABSOLUTE BASOPHILS # (AUTO) 0.1 10^3/uL (0.0-0.2); ABSOLUTE EOSINOPHILS # (AUTO) 0.2 10^3/uL (0.0-0.6); ABSOLUTE LYMPHOCYTES (AUTO) 1.6 10^3/uL (0.5-4.7); ABSOLUTE MONOCYTES (AUTO) 0.6 10^3/uL (0.1-1.4); ABSOLUTE NEUT (AUTO) 4.2 10^3/uL (1.7-8.2); BASOPHILS % (AUTO) 1.2 % (0-2); EOSINOPHILS % (AUTO) 3.5 % (0-6); HEMATOCRIT 41.9 % (37.9-51.0); HEMOGLOBIN 15.2 g/dL (13.5-17.0); HGB HCT DIFFERENCE 3.7; LYMPHOCYTES % (AUTO) 23.8 % (13-45); MEAN CORPUSCULAR HEMOGLOBIN 31.4 pg (27.0-33.4); MEAN CORPUSCULAR HGB CONC 36.2 g/dL (32.0-36.0); MEAN CORPUSCULAR VOLUME 87 fl (80-97); MONOCYTES % (AUTO) 9.4 % (3-13); RED BLOOD COUNT 4.83 10^6/uL (4.35-5.55); RED CELL DISTRIBUTION WIDTH 13.7 % (11.5-14.0); SEGMENTED NEUTROPHILS % (AUTO) 62.1 % (42-78); WHITE BLOOD COUNT 6.7 10^3/uL (4.0-10.5)
[2017-06-27 18:19] LABS: PROTHROMBIN TIME 12.5 SEC (11.4-15.4)
[2017-06-27 18:20] LABS: PARTIAL THROMBOPLASTIN TIME 37.7 SEC (23.5-35.8)
--- NOTE | 2017-06-27 18:25 | RADIOLOGY REPORT (SQ) ---
EXAM DESCRIPTION: CHEST SINGLE VIEW COMPLETED DATE/TIME: 06/27/2017 5:56 pm REASON FOR STUDY: right facial numbness COMPARISON: 12/31/2016 EXAM PARAMETERS: NUMBER OF VIEWS: One view. TECHNIQUE: Single frontal radiographic view of the chest acquired. RADIATION DOSE: NA LIMITATIONS: None. FINDINGS: LUNGS AND PLEURA: No opacities, masses or pneumothorax. No pleural effusion. MEDIASTINUM AND HILAR STRUCTURES: No masses. Contour normal. HEART AND VASCULAR STRUCTURES: Heart normal in size. Normal vasculature. BONES: No acute findings. HARDWARE: Mediastinal surgical changes. Cardiac monitoring device. OTHER: No other significant finding. IMPRESSION: NO ACUTE RADIOGRAPHIC FINDING IN THE CHEST. TECHNICAL DOCUMENTATION: JOB ID: [id number]
[2017-06-27 18:32] LABS: ALANINE AMINOTRANSFERASE 61 U/L (21-72); ALBUMIN 4.6 g/dL (3.5-5.0); ALKALINE PHOSPHATASE 100 U/L (38-126); ANION GAP 15 (5-19); ASPARTATE AMINO TRANSFERASE 33 U/L (17-59); BILIRUBIN,DIRECT 0.4 mg/dL (0.0-0.4); BLOOD UREA NITROGEN 13 mg/dL (7-20); CALCIUM 10.2 mg/dL (8.4-10.2); CARBON DIOXIDE 27 mmol/L (22-30); CHLORIDE 102 mmol/L (98-107); CREATINE KINASE 163 U/L (55-170); CREATININE RESULT 0.88 mg/dL (0.52-1.25); GLUCOSE 88 mg/dL (75-110); POTASSIUM 4.4 mmol/L (3.6-5.0); TOTAL PROTEIN 8.3 g/dL (6.3-8.2)
[2017-06-27 18:43] LABS: CREATINE KINASE MB 3.16 ng/mL (<4.55)
[2017-06-27 18:45] LABS: TROPONIN I < 0.012 ng/mL
[2017-06-27] MEDS ORDERED: ASPIRIN 81 MG TABLET, CHEWABLE PO ONE (18:56)
--- NOTE | 2017-06-27 20:21 | ER Document Report ---
ED General - General Chief Complaint: S/S of Possible Stroke Stated Complaint: DIZZINESS Time Seen by Provider: 06/27/17 17:13 Mode of Arrival: Wheelchair Information source: Patient Notes: This is a 62-year-old man with significant history for coronary artery disease who presents to the emergency room with symptoms of stroke. 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 Started having right facial numbness, difficulty speaking, loss of coordination. TRAVEL OUTSIDE OF THE [place] IN LAST 30 DAYS: No - HPI Onset: Just prior to arrival Onset/Duration: Gradual Quality of pain: No pain Severity: None Pain Level: Denies Associated symptoms: denies: Chest pain, Fever, Shortness of breath Exacerbated by: Denies Relieved by: Denies Similar symptoms previously: Yes Recently seen / treated by doctor: Yes - Related Data Allergies/Adverse Reactions: atenolol Allergy (Verified 06/27/17 17:03) gabapentin Allergy (Verified 06/27/17 17:03) niacin Allergy (Verified 06/27/17 17:03) Past Medical History - General Information source: Patient, Relative - Social History Smoking Status: Never Smoker Cigarette use (# per day): No Chew tobacco use (# tins/day): No Frequency of alcohol use: None Drug Abuse: None Lives with: Spouse/Significant other Family History: Reviewed & Not Pertinent Patient has suicidal ideation: No Patient has homicidal ideation: No - Past Medical History Cardiac Medical History: Reports: Hx Coronary Artery Disease - BYPASS SURGERY X2 Denies: Hx Congestive Heart Failure, Hx DVT, Hx Heart Attack, Hx Hypercholesterolemia, Hx Hypertension, Hx Pulmonary Embolism Pulmonary Medical History: Reports: Hx Pneumonia Denies: Hx Asthma, Hx Bronchitis, Hx COPD Neurological Medical History: Denies: Hx Cerebrovascular Accident, Hx Seizures Endocrine Medical History: Denies: Hx Diabetes Mellitus Type 1, Hx Diabetes Mellitus Type 2, Hx Hyperthyroidism, Hx Hypothyroidism Renal/ Medical History: Denies: Hx Peritoneal Dialysis GI Medical History: Denies: Hx Cirrhosis, Hx Gastroesophageal Reflux Disease, Hx Hepatitis Musculoskeltal Medical History: Reports Hx Arthritis - MILD SHOULDER Psychiatric Medical History: Denies: Hx Depression Infectious Medical History: Denies: Hx Hepatitis Past Surgical History: Reports: Hx Cardiac Surgery - double and triple bypass/ stents, Hx Coronary Artery Bypass Graft - 2, Hx Orthopedic Surgery - Hip surgery, Other - Craniotomy as a - Immunizations Hx Diphtheria, Pertussis, Tetanus Vaccination: Yes Review of Systems - Review of Systems Constitutional: denies: Chills, Fever EENT: No symptoms reported Cardiovascular: No symptoms reported Respiratory: No symptoms reported Gastrointestinal: No symptoms reported Genitourinary: No symptoms reported Male Genitourinary: No symptoms reported Musculoskeletal: No symptoms reported Skin: No symptoms reported Hematologic/Lymphatic: No symptoms reported Neurological/Psychological: See HPI Physical Exam - Vital signs Vitals: Temp Pulse Resp BP Pulse Ox 65 F L 65 17 152/79 H 99 06/27/17 17:03 06/27/17 17:03 06/27/17 17:03 06/27/17 17:03 06/27/17 17:03 Notes: Physical exam: GENERAL: 62-year-old man, alert and oriented 3, no acute distress HEAD: Atraumatic, normocephalic. EYES: Pupils equal round and reactive to light, extraocular movements intact, sclera anicteric, conjunctiva are normal. ENT: TMs normal, nares patent, oropharynx clear without exudates. Moist mucous membranes. NECK: Normal range of motion, supple without obvious mass or JVD. LUNGS: Breath sounds clear to auscultation bilaterally and equal. No wheezes rales or rhonchi. HEART: Regular rate and rhythm without murmurs, rubs or gallops. ABDOMEN: Soft, normoactive bowel sounds. No tenderness to palpation. No guarding, no rebound. No masses appreciated. EXTREMITIES: Normal range of motion, no pitting or edema. No clubbing or cyanosis. NEUROLOGICAL: Cranial nerves II through XII grossly intact. Normal speech, moving all extremities. Motor 5/5, sensory grossly intact, cerebellar (finger to nose) good. PSYCH: Normal mood, normal affect. SKIN: Warm, Dry, normal turgor, no rashes or lesions noted. Course - Re-evaluation Re-evalutation: I have offered admission for the patient. Additionally, I have arranged for a bed and Dr. Coreas has accepted the patient for admission. However I was called to the room because the patient and his would prefer not to be admitted. I have had a long discussion with the patient. Him and his prefer that he is not admitted tonight. I explained that often times with symptoms of possible TIA, we will admit people for a brain MRI, carotid Doppler exam, echo, cardiac monitoring. The patient has a loop recorder in his chest as well so he has a library sales consultant that can follow-up with his heart rhythms. Because of the loop recorder, he cannot have a brain MRI. He has had relatively recent carotid duplex which showed no disease and an echo which was relatively good. I was able to review those test results. Given this, the only other reason to admit him would be to watch him if his symptoms got worse. He was given aspirin. They prefer to go home and come back if there is any problems. They seem very reliable and it is hard to argue against this given the workup that he is already had. He does have plans to see his neurologist on Thursday and I have given him a copy of the results of the carotid duplex, echo, CT report from today, labs from today and a recent stress test as well. 06/27/17 22:36 06/28/17 01:13 - Vital Signs Vital signs: Temp Pulse Resp BP Pulse Ox 65 F L 88 11 L 143/77 H 99 06/27/17 17:03 06/27/17 21:26 06/27/17 22:31 06/27/17 22:31 06/27/17 22:31 - Laboratory Result Diagrams: 06/27/17 17:56 06/27/17 17:56 Laboratory results interpreted by me: 06/27/17 06/27/17 06/27/17 17:56 17:56 17:56 MCHC 36.2 H APTT 37.7 H Total Protein 8.3 H - Diagnostic Test Radiology reviewed: Image reviewed, Reports reviewed - CT of the head shows no acute bleed or infarct. Chest x-ray is clear. - EKG Interpretation by Me Rate: Normal Rhythm: NSR - EKG shows normal sinus rhythm with a ventricular rate of 56, no acute ST-T wave changes Discharge - Discharge Clinical Impression: tia Condition: Stable Disposition: HOME, SELF-CARE Instructions: Transient Ischemic Attack ([facility]) Additional Instructions: Thank you for choosing [facility] for your care. The examination and treatment you have received in the Emergency Department today has been rendered on an emergency basis only and is not intended to be a substitute for complete medical care. You should contact your follow-up physician as it is important that he or she examine you for any new or remaining problems. If given a copy of any lab tests or radiology reports, please bring them with you when you see your physician. If your problem worsens or new symptoms appear and you are unable to arrange prompt follow-up care, return to the Emergency Department. Specific signs to look out for: Worsening speech, focal motor weakness, any concerns or getting worse. Any other instructions: Return to the ER for any concerns which are getting worse (look at the specific signs above). Follow-up with Dr. Rivera as planned on Thursday. Follow-up with your library sales consultant as well. Bring a copy of your labs and test results with you when you see Dr. Rivera. Referrals: GERRI HEARD MD [Primary Care Provider] - Follow up as needed
[2017-06-27] MEDS ORDERED: DOCUSATE SODIUM 100 MG CAPSULE PO PRN (20:57)
[2017-06-27] MEDS ORDERED: ACETAMINOPHEN 325 MG TABLET PO PRN (20:57)
[2017-06-27] MEDS ORDERED: ASPIRIN/DIPYRIDAMOLE 25-200 MG 1 CAP.SR CPMP.12HR PO ONE (21:15)
[2017-06-27] MEDS ORDERED: ATORVASTATIN CALCIUM 80 MG TABLET PO SCH (22:00)
[2017-06-27] MEDS ORDERED: HEPARIN SOD (PORCINE) 5,000 UNIT/ML 1 ML SYRINGE SUBCUT SCH (22:00)
[2017-06-27 22:37] VITALS: BP 143/77
--- NOTE | 2017-06-28 08:03 | EKG REPORT ---
SEVERITY:- ABNORMAL ECG - SINUS RHYTHM FIRST DEGREE AV BLOCK : Confirmed by: Lionel Phillips MD 28-Jun-2017 08:02:39
[2017-06-28] MEDS ORDERED: ASPIRIN/DIPYRIDAMOLE 25-200 MG 1 CAP.SR CPMP.12HR PO SCH (10:00)
[2017-06-28] MEDS ORDERED: FLUOXETINE HCL 20 MG CAPSULE PO SCH (10:00)
== END 2017-06-27 22:50 | disposition home or self-care (01) ==
LOC: ER 17:01 → EH 20:30 → UNDOADMOB 20:30 → EH 20:57 → UNDOADMOB 20:57 → ER 22:50
DX: G45.9 Transient cerebral ischemic attack, unspecified (principal); R42 Dizziness and giddiness; R20.0 Anesthesia of skin; R29.818 Other symptoms and signs involving the nervous system; I25.10 Atherosclerotic heart disease of native coronary artery without angina pectoris; Z88.8 Allergy status to other drugs, medicaments and biological substances; Z88.6 Allergy status to analgesic agent; Z95.1 Presence of aortocoronary bypass graft; Z95.5 Presence of coronary angioplasty implant and graft; Z95.818 Presence of other cardiac implants and grafts
CPT/HCPCS: 36415; 70450; 71010; 80053; 82550; 82553; 84484; 85025; 85610; 85652; 85730; 93005; 93010; 99285

== ENCOUNTER 2017-06-30 19:22 | Emergency (ER) | payer BC ==
[2017-06-30] MEDS ORDERED: NORMAL SALINE 1000 ML 1,000 ML IV ONE (20:00)
--- NOTE | 2017-06-30 20:02 | ER Document Report ---
ED Medical Screen (RME) - General Chief Complaint: Allergic Reaction Stated Complaint: POSSIBLE ALLERGIC REACTION Time Seen by Provider: 06/30/17 19:59 Notes: Patient has a fairly complicated recent clinical course. Please refer to previous notes. Patient was given Marinol today by a neurologist for some problems with dizziness. patient was seen here this past Thursday and diagnosed with a TIA. The states the neurologist felt that it was more of an inner ear problem causing his symptoms. Therefore the neurologist prescribed Marinol. After taking 1 Marinol pill he began to have emotional outbursts, worse dizziness, flushing, chest pain, shortness of breath, and being unsteady on his feet. TRAVEL OUTSIDE OF THE [place] IN LAST 30 DAYS: No - Related Data Allergies/Adverse Reactions: atenolol Allergy (Verified 06/27/17 17:03) gabapentin Allergy (Verified 06/27/17 17:03) niacin Allergy (Verified 06/27/17 17:03) Past Medical History - Past Medical History Cardiac Medical History: Reports: Hx Coronary Artery Disease - BYPASS SURGERY X2 Denies: Hx Congestive Heart Failure, Hx DVT, Hx Heart Attack, Hx Hypercholesterolemia, Hx Hypertension, Hx Pulmonary Embolism Pulmonary Medical History: Reports: Hx Pneumonia Denies: Hx Asthma, Hx Bronchitis, Hx COPD Neurological Medical History: Denies: Hx Cerebrovascular Accident, Hx Seizures Endocrine Medical History: Denies: Hx Diabetes Mellitus Type 1, Hx Diabetes Mellitus Type 2, Hx Hyperthyroidism, Hx Hypothyroidism Renal/ Medical History: Denies: Hx Peritoneal Dialysis GI Medical History: Denies: Hx Cirrhosis, Hx Gastroesophageal Reflux Disease, Hx Hepatitis Musculoskeltal Medical History: Reports Hx Arthritis - MILD SHOULDER Psychiatric Medical History: Denies: Hx Depression Infectious Medical History: Denies: Hx Hepatitis Past Surgical History: Reports: Hx Cardiac Surgery - double and triple bypass/ stents, Hx Coronary Artery Bypass Graft - 2, Hx Orthopedic Surgery - Hip surgery, Other - Craniotomy as a - Immunizations Hx Diphtheria, Pertussis, Tetanus Vaccination: Yes Physical Exam - Vital signs Vitals: Temp Pulse BP Pulse Ox 97.7 F 107 H 141/105 H 99 06/30/17 19:50 06/30/17 19:50 06/30/17 19:50 06/30/17 19:50 Course - Vital Signs Vital signs: Temp Pulse Resp BP Pulse Ox 97.7 F 107 H 141/105 H 99 06/30/17 19:50 06/30/17 19:50 06/30/17 19:50 06/30/17 19:50
[2017-06-30 20:45] LABS: ABSOLUTE EOSINOPHILS # (AUTO) 0.2 10^3/uL (0.0-0.6); ABSOLUTE LYMPHOCYTES (AUTO) 1.2 10^3/uL (0.5-4.7); ABSOLUTE MONOCYTES (AUTO) 0.5 10^3/uL (0.1-1.4); ABSOLUTE NEUT (AUTO) 4.4 10^3/uL (1.7-8.2); BASOPHILS % (AUTO) 0.7 % (0-2); EOSINOPHILS % (AUTO) 3.2 % (0-6); HEMATOCRIT 40.9 % (37.9-51.0); HEMOGLOBIN 14.7 g/dL (13.5-17.0); HGB HCT DIFFERENCE 3.2; LYMPHOCYTES % (AUTO) 18.7 % (13-45); MEAN CORPUSCULAR HEMOGLOBIN 32.2 pg (27.0-33.4); MEAN CORPUSCULAR HGB CONC 35.9 g/dL (32.0-36.0); MEAN CORPUSCULAR VOLUME 90 fl (80-97); MONOCYTES % (AUTO) 8.2 % (3-13); RED BLOOD COUNT 4.56 10^6/uL (4.35-5.55); RED CELL DISTRIBUTION WIDTH 13.8 % (11.5-14.0); SEGMENTED NEUTROPHILS % (AUTO) 69.2 % (42-78); WHITE BLOOD COUNT 6.4 10^3/uL (4.0-10.5)
[2017-06-30 20:56] LABS: ALANINE AMINOTRANSFERASE 46 U/L (21-72); ALBUMIN 4.5 g/dL (3.5-5.0); ALKALINE PHOSPHATASE 92 U/L (38-126); ANION GAP 13 (5-19); ASPARTATE AMINO TRANSFERASE 26 U/L (17-59); BILIRUBIN,DIRECT 0.5 mg/dL (0.0-0.4); BILIRUBIN,TOTAL 0.8 mg/dL (0.2-1.3); BLOOD UREA NITROGEN 17 mg/dL (7-20); CALCIUM 9.7 mg/dL (8.4-10.2); CARBON DIOXIDE 27 mmol/L (22-30); CHLORIDE 104 mmol/L (98-107); CREATININE RESULT 0.95 mg/dL (0.52-1.25); GLUCOSE 107 mg/dL (75-110); POTASSIUM 4.4 mmol/L (3.6-5.0); SODIUM 143.5 mmol/L (137-145); TOTAL PROTEIN 7.3 g/dL (6.3-8.2)
[2017-06-30] MEDS ORDERED: DIPHENHYDRAMINE HCL 50 MG/ML VIAL IV ONE (21:08)
--- NOTE | 2017-06-30 21:16 | ER Document Report ---
ED Allergic Reaction - General Mode of Arrival: Ambulatory Information source: Patient TRAVEL OUTSIDE OF THE [place] IN LAST 30 DAYS: No <SEFERINO BROWN - Last Filed: 06/30/17 22:01> <ZACH SIMON - Last Filed: 06/30/17 23:29> - General Chief Complaint: Allergic Reaction Stated Complaint: POSSIBLE ALLERGIC REACTION Time Seen by Provider: 06/30/17 19:59 Notes: Patient is a 62 year old male that presents to the emergency department today with complaints of a possible allergic reaction to marinol which was started today at around 1530. From the history given by the , it appears that the patient was started on marinol today by neurology to hopefully keep the patient from having dizzy spells according to the . states that after the patient took the medication he became "really tired, flushed, developed chest pain, confusion, and random muscle twitches". Patient complains of nausea but denies any vomiting. (SEFERINO BROWN) - Related Data Allergies/Adverse Reactions: atenolol Allergy (Verified 06/27/17 17:03) gabapentin Allergy (Verified 06/27/17 17:03) niacin Allergy (Verified 06/27/17 17:03) Past Medical History - General Information source: [facility] Records - Social History Smoking Status: Unknown if Ever Smoked Cigarette use (# per day): No Frequency of alcohol use: None Drug Abuse: None Lives with: Family Family History: Reviewed & Not Pertinent Patient has suicidal ideation: No Patient has homicidal ideation: No - Past Medical History Cardiac Medical History: Reports: Hx Coronary Artery Disease - BYPASS SURGERY X2 Pulmonary Medical History: Reports: Hx Pneumonia Musculoskeltal Medical History: Reports Hx Arthritis - MILD SHOULDER Past Surgical History: Reports: Hx Cardiac Surgery - double and triple bypass/ stents, Hx Coronary Artery Bypass Graft - 2, Hx Orthopedic Surgery - Hip surgery, Other - Craniotomy as a - Immunizations Hx Diphtheria, Pertussis, Tetanus Vaccination: Yes <SEFERINO BROWN - Last Filed: 06/30/17 22:01> Review of Systems - Review of Systems Constitutional: See HPI, Other - "really tired" EENT: No symptoms reported Cardiovascular: See HPI, Chest pain Respiratory: No symptoms reported Gastrointestinal: See HPI, Nausea. denies: Vomiting Genitourinary: No symptoms reported Male Genitourinary: No symptoms reported Musculoskeletal: See HPI, Other - Random uncontrolled movements Skin: No symptoms reported Hematologic/Lymphatic: No symptoms reported Neurological/Psychological: See HPI, Confusion -: Yes All other systems reviewed and negative <SEFERINO BROWN - Last Filed: 06/30/17 22:01> <ZACH SIMON - Last Filed: 06/30/17 23:29> - Review of Systems Notes: given by at bedside (SEFERINO BROWN) Physical Exam <SEFERINO BROWN - Last Filed: 06/30/17 22:01> <ZACH SIMON - Last Filed: 06/30/17 23:29> - Vital signs Vitals: Temp Pulse BP Pulse Ox 97.7 F 107 H 141/105 H 99 06/30/17 19:50 06/30/17 19:50 06/30/17 19:50 06/30/17 19:50 - Notes Notes: Physical Exam: General: Alert, communicative but slow to respond. HEENT: Normocephalic. Atraumatic. PERRL. Extraocular movements intact. Oropharynx clear. Neck: Supple. Non-tender. Respiratory: No respiratory distress. Clear and equal breath sounds bilaterally. Cardiovascular: Regular rate and rhythm. Abdominal: Normal Inspection. Non-tender. No distension. Normal Bowel Sounds. Back: Non-tender. No deformity or step off. Extremities: Moves all four extremities. Upper extremities: Normal inspection. Normal ROM. Lower extremities: Normal inspection. No edema. Normal ROM. Neurological: Normal cognition. Cranial nerves II through XII grossly intact bilaterally. AAOx4. 5/5 muscle strength in all four extremities, sensation intact to light touch. Psychological: Normal affect. Normal Mood. Skin: Warm. Dry. Normal color. (SEFERINO BROWN) Course - Laboratory Result Diagrams: 06/30/17 20:30 06/30/17 20:30 <SEFERINO BROWN - Last Filed: 06/30/17 22:01> - Laboratory Result Diagrams: 06/30/17 20:30 06/30/17 20:30 <ZACH SIMON - Last Filed: 06/30/17 23:29> - Re-evaluation Re-evalutation: 06/30/17 23:25 Patient with likely adverse reaction to medication. He took Marinol for the first time today. He has had some emotional lability. He has been fatigued and somnolent. He has had some jerking like motion, but no loss of consciousness. He describes having a dry mouth. With these symptoms, we treated the patient with 12.5 mg of diphenhydramine in case of extraparametal effects from the Marinol. On reexamination at 2315, the patient was resting but awoke appropriately. He is alert and communicative. He is appears to be significantly improved. Repeat neurologic exam finds no focal deficit. This includes negative pronator drift, equal service support representative strength bilaterally, 5 out of 5 strength in all 4 extremities, cranial nerves II through XII are intact. The patient will follow up with his neurologist regarding the Marinol and a change in medication for his recent vertigo. The patient and his had a trip to [place] planned for this coming weekend but I have advised him to reschedule this. This was fully discussed with the patient's as well. They are comfortable with discharge at this time. (ZACH SIMON) - Vital Signs Vital signs: Temp Pulse Resp BP Pulse Ox 97.7 F 107 H 141/105 H 99 06/30/17 19:50 06/30/17 19:50 06/30/17 19:50 06/30/17 19:50 - Laboratory Laboratory results interpreted by me: 06/30/17 06/30/17 20:30 20:30 Plt Count 149 L Direct Bilirubin 0.5 H Discharge <SEFERINO BROWN - Last Filed: 06/30/17 22:01> <ZACH SIMON - Last Filed: 06/30/17 23:29> - Discharge Clinical Impression: Dyskinesia Medication reaction Qualifiers: Encounter type: initial encounter Qualified Code(s): T88.7XXA - Unspecified adverse effect of drug or medicament, initial encounter Condition: Good Disposition: HOME, SELF-CARE Instructions: Medication Side Effects ([facility]) Additional Instructions: Your neurologic exam showed no focal deficit. Your overall condition improved while in the emergency department after being given Benadryl, 12-1/2 mg. Follow -up with your neurologist. Return to the emergency department if there is any focal weakness, if there are any cognitive changes, or if there are any other symptoms that are concerning. Referrals: GERRI HEARD MD [Primary Care Provider] - Follow up as needed Scribe Attestation: 06/30/17 23:29 I personally performed the services described in the documentation, reviewed and edited the documentation which was dictated to the scribe in my presence, and it accurately records my words and actions. (ZACH SIMON)
[2017-06-30 23:50] VITALS: BP 133/64
--- NOTE | 2017-07-01 17:37 | EKG REPORT ---
SEVERITY:- NORMAL ECG - SINUS RHYTHM : Confirmed by: Lakisha Sellers MD 01-Jul-2017 17:36:44
== END 2017-06-30 23:49 | disposition home or self-care (01) ==
LOC: ER 19:22
DX: G24.01 Drug induced subacute dyskinesia (principal); T45.0X5A Adverse effect of antiallergic and antiemetic drugs, initial encounter; R07.9 Chest pain, unspecified; R41.0 Disorientation, unspecified; R40.0 Somnolence; R11.0 Nausea; R53.83 Other fatigue; R68.2 Dry mouth, unspecified; I25.10 Atherosclerotic heart disease of native coronary artery without angina pectoris; Z88.8 Allergy status to other drugs, medicaments and biological substances; Z88.6 Allergy status to analgesic agent; Z95.1 Presence of aortocoronary bypass graft; Z95.5 Presence of coronary angioplasty implant and graft
CPT/HCPCS: 93005; 99284; 96361; 96374; 36415; 85025; 80053; 84484; 93010; J1200; J7030